=== PATIENT | male | born 1975 | race American Indian/Alaskan Native ===

== ENCOUNTER 2019-09-24 12:32 | Day surgery (SDC) | payer MEDICARE ==
--- NOTE | 2019-09-24 13:14 | Anesthesia Consultation ---
Anesthesia Consult and Med Hx Date of service: 09/24/19 - Airway Anesthetic Teeth Evaluation: Good ROM Head & Neck: Adequate Mental/Hyoid Distance: Adequate Mallampati Class: Class II Intubation Access Assessment: Probably Good - Pulmonary Exam CTA: Yes - Cardiac Exam Cardiac Exam: RRR - Pre-Operative Health Status ASA Pre-Surgery Classification: ASA2 Proposed Anesthetic Plan: General - Pulmonary Hx Smoking: No Hx Sleep Apnea: Yes (DX SLEEP APNEA WITH CPAP USE.) - Cardiovascular System Hx Hypertension: No Hx Heart Murmur: No - Central Nervous System Hx Psychiatric Problems: No - Gastrointestinal Hx Gastroesophageal Reflux Disease: Yes (nexium last dose 09/23) - Hematic Hx Anemia: Yes Hx Sickle Cell Disease: No - Other Systems Hx Alcohol Use: No Hx Substance Use: No Hx Cancer: No Hx Obesity: Yes
[2019-09-24] MEDS ORDERED: SODIUM CHLORIDE 0.9% 1000 ML 1,000 ML IV SCH (13:15)
--- NOTE | 2019-09-24 13:15 | Anesthesia Day of Surgery ---
Anesthesia Day of Surgery - Day of Surgery Patient Examined: Yes Patient H&P Reviewed: Yes Patient is NPO: Yes
[2019-09-24] MEDS ORDERED: ONDANSETRON 4 MG/2 ML INJ IV PRN (13:16)
[2019-09-24] MEDS ORDERED: HYDROcodone/ACETAMINOPHEN 5-325 MG TAB PO PRN (13:16)
[2019-09-24] MEDS ORDERED: MIDAZOLAM 2 MG/2 ML INJ IV NR (14:00)
[2019-09-24] MEDS ORDERED: FAMOTIDINE 20 MG TAB PO NR (14:00)
[2019-09-24] MEDS ORDERED: ceFAZolin/STERILE WATER 2 GM/20 ML SYRINGE IV NR (14:00)
[2019-09-24] MEDS ORDERED: LIDOCAINE MPF (2%) 20 MG/1 ML VIAL 5 ML ONE (15:10)
[2019-09-24] MEDS ORDERED: fentaNYL 100 MCG/2 ML INJ ONE (15:11)
[2019-09-24] MEDS ORDERED: propofoL 200 MG/20 ML VIAL IV ONE (15:11)
--- NOTE | 2019-09-24 15:26 | Short Stay Summary ---
Short Stay Documentation Date of service: 09/24/19 - History H&P: obtained from office - Allergies and Medications Current Medications: Allergies cyclobenzaprine Adverse Reaction (Intermediate, Verified 09/13/19 13:44) Hives FLEXARIL Home Medications Medication Instructions Recorded Confirmed Last Taken Type Cyanocobalamin [Vitamin B-12] 1,000 mcg PO DAILY 09/13/19 09/13/19 Unknown History Ergocalciferol (Vitamin D2) 5,000 units MT DAILY 09/13/19 09/13/19 Unknown History [Vitamin D2] Omeprazole 20 mg PO DAILY 09/13/19 09/13/19 Unknown History Active Medications Acetaminophen/Hydrocodone Bitart ([place] 5/325) 2 each PO ONCE PRN PRN Reason: Pain, Moderate (4-6) Cefazolin Sodium (Ancef/Sterile Water 2 Gm/20 Ml) 2 gm IV PREOP NR Stop: 09/24/19 23:59 Famotidine (Pepcid) 20 mg PO PREOP NR Stop: 09/24/19 23:59 Hydromorphone HCl (Dilaudid) 0.5 mg IV Q10MIN PRN PRN Reason: Pain , Severe (7-10) Stop: 09/24/19 23:59 Sodium Chloride (Nacl 0.9% 1000 Ml) 1,000 mls @ 100 mls/hr IV DIRECT KAY Midazolam HCl (Versed) 2 mg IV PREOP NR Stop: 09/24/19 23:59 Ondansetron HCl (Zofran) 4 mg IV ONCE PRN PRN Reason: Nausea And Vomiting Stop: 09/24/19 23:59 - Brief post op/procedure progress note Date of procedure: 09/24/19 Pre-op diagnosis: CPPS, cystitis Post-op diagnosis: same Procedure: cysto, bladder bx, fulguration luna rpg hdst Findings: sig improvement overt the yrs, rt uo easily seen less cystitis glands Surgeon: MARY ANN BHAT Estimated blood loss: minimal Pathology: list Specimen disposition: to lab Condition: stable (trigone x2, prost urethra / bn) - Hospital course Hospital course: OR PACU Home - Disposition Condition at discharge: Good Disposition: - TO HOME OR SELFCARE Short Stay Discharge Plan Activity: advance as tolerated Diet: advance as tolerated Additional Instructions: DIET TOLERATED ACTIVITY NO RESTRICTIONS PRESCRIPTION FOR ANTIBIOTIC. TAKE DIRECTED APPOINTMENT DR BHAT WANTS TO SEE YOU IN HIS OFFICE IN 14 DAYS CALL FOR APPOINTMENT AND FOR ANY QUESTIONS OR CONCERNS RELATED TO YOUR PROCEDURE Follow up with: MARY ANN BHAT MD [Staff Physician] - 14 Days Forms: Outpatient Surgery DC Inst. Prescriptions: cefUROXime [Ceftin] 500 mg PO Q12H #20 tablet
[2019-09-24] MEDS ORDERED: dexAMETHasone 20 MG/5 ML VIAL ONE (15:30)
[2019-09-24] MEDS ORDERED: ONDANSETRON 4 MG/2 ML INJ ONE (15:30)
[2019-09-24] MEDS ORDERED: WATER FOR IRRIG STERILE 1,000 ML BOTTLE IR ONE (16:20)
[2019-09-24] MEDS: HYDROmorphone 1 MG/1 ML INJ IV PRN ×2 (17:00→17:10)
[2019-09-24 17:36] VITALS: BP 138/68
--- NOTE | 2019-09-24 17:55 | Fluoroscopy Report ---
INTRAOPERATIVE FLUOROSCOPY: RETROGRADE UROGRAPHY INDICATION: CHRONIC PELVIC PAIN/INTERSTITIAL CYSTITIS. TECHNIQUE: Intraoperative spot images were obtained during the procedure. FINDINGS: Limited spot fluoroscopy demonstrates unremarkable opacification of the ureters and renal collecting systems. Please see the procedure report for further details. Fluoroscopy Time: 12 seconds. Fluoroscopy Images: 5. Signer Name: Bradnon Rodriguez MD Signed: 09/24/2019 5:50 PM Workstation Name: [id number]
--- NOTE | 2019-10-05 18:54 | Operative Report ---
UROLOGY OPERATIVE NOTE PREOPERATIVE DIAGNOSES: Chronic pelvic pain. POSTOPERATIVE DIAGNOSES: Chronic pelvic pain. PROCEDURE: Cystoscopy, bladder biopsies, fulguration of lesions and mild hydrodistention, bilateral RPG. SURGEON: Jose Silva MD ANESTHESIA: General. SPECIMENS: Bladder biopsies. ESTIMATED BLOOD LOSS: Minimal. COMPLICATIONS: None. FINDINGS: Overall, through the years, he has had continued improvement on the cystitis and glans and appearance of the bladder in the past could not find the ureteral orifice, now able to visualize both ureteral orifices and overall improvement over the multiple years. PATHOLOGY: See the specimens, which were done are as follows: Under pathology, bladder trigone just at the prostatic urethra, bladder biopsy and then trigone to biopsy. CLINICAL INDICATIONS: The patient counseled RCBA, antibiotics, SCDs. The patient has a long history of undergoing these procedures. He definitively undergoes the procedure, will have sometimes increase pain afterwards initially for a few weeks and then after will have 3-4 months of complete resolution with no pain. The patient was counseled on alternative options, but he desires to proceed. Counseled on his large prostate size and implications of TUR, but once at this point stay with just doing exactly what he doing and nothing more nothing less. DESCRIPTION OF PROCEDURE: The patient was transferred to OR suite in supine position, anesthesia, dorsal lithotomy. The patient had antibiotics and SCDs. The patient was prepped and draped in our standard fashion. A 22-[place] scope was passed. Moderately large lateral lobe mild median lobe. Upon entering bladder, pancystoscopy was performed with 30 and 70 degree lens. Left UO, right UO easily visualized. Left UO cannulated 8-[place] cone-tipped catheter, contrast injected. Normal left distal ureter, proximal ureter, renal pelvis calyces, no filling defects or hydronephrosis. This was repeated on the right side with similar normal findings. At this point, there were some slightly areas of cystitis. Inspection of the bladder demonstrated an appearance that overall has been continued to improve and continued to improve past cystoscopy significantly versus initial cystoscopy. We were able to see the ureteral orifice, which we have been able to do in the past. There were some areas that we did biopsies of bladder trigone biopsy in 2 different areas, but trigone biopsies were taken and just proximal at the bladder neck, prostatic urethra biopsy was taken of the biopsy forceps. These areas were cauterized and sent for pathology. The ureteral orifices were effluxing and bilateral retrograde pyelograms had been performed prior to the biopsies as described above and the bilateral retrograde pyelograms were normal. At this point, scope was withdrawn. Exam under anesthesia, testicles, no nodules bilaterally. Digital rectal exam, prostate, no nodules. The patient awakened and transferred to PACU in good and stable condition. JOB# [id number] ATS/NTS
== END 2019-09-24 12:33 | disposition home or self-care (01) ==
LOC: OR 12:32
PROVIDERS: ATTEND Urology
DX: N30.10 Interstitial cystitis (chronic) without hematuria (principal); N40.1 Benign prostatic hyperplasia with lower urinary tract symptoms; N41.1 Chronic prostatitis; I10 Essential (primary) hypertension; G47.30 Sleep apnea, unspecified; E66.9 Obesity, unspecified; K21.9 Gastro-esophageal reflux disease without esophagitis; F32.9 Major depressive disorder, single episode, unspecified; D64.9 Anemia, unspecified; Z71.3 Dietary counseling and surveillance; Z79.899 Other long term (current) drug therapy; Z98.890 Other specified postprocedural states; Z68.41 Body mass index [BMI] 40.0-44.9, adult
CPT/HCPCS: 52204; 52260; 74420; 82962; 88305; C1758; J0690; J1100; J1170; J2250; J2405; J2704; J3010; J7030; Q9967